=== PATIENT | female | born 1990 | race Caucasian/White ===

== ENCOUNTER 2017-10-28 15:16 | Emergency (ER) | payer OTHER ==
[2017-10-28] MEDS: predniSONE 20 MG TABLET PO (16:29)
[2017-10-28] MEDS: IPRATRPIUM/ALBUTEROL 0.5/2.5MG 3 ML NEBU. NEB (16:57)
== END 2017-10-28 17:17 | disposition home or self-care (01) ==
LOC: ER 15:16
DX: J40 Bronchitis, not specified as acute or chronic (principal); Z88.1 Allergy status to other antibiotic agents
CPT/HCPCS: 94640; 99283-25; J7512; J7620